=== PATIENT | female | born 1995 | race Caucasian/White ===

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

== ENCOUNTER 2017-07-30 12:49 | Emergency (ER) | payer BC, OTHER ==
[~2017-07-30] VITALS: Ht 162.6 cm; Wt 64.6 kg
[~2017-07-30 12:49] MED LIST: BCPILLS PO; CIPR-255 PO; FEXO1TAB49 PO; MULT-513 PO
[2017-07-30 12:59] VITALS: TEMP 37.2; Ht 162.6 cm; Wt 64.6 kg
[2017-07-30] MEDS ORDERED: ALBUT/IPRATROP 3MG/0.5MG NEB 3 ML VIAL INH STA (13:19)
[2017-07-30] MEDS ORDERED: METHYLPREDNISOLONE 125 MG VIAL IV STA (13:19)
[2017-07-30 13:30] VITALS: O2SAT 99
[2017-07-30] MEDS ORDERED: OPTIRAY 320 IV PRN (13:30)
[2017-07-30 13:32] LABS: BASO % 0.6 %; BASO ABS # 0.04 K/uL (0-0.2); COMPLETE YES; HEMATOCRIT 39.1 % (37-47); IG% 0.3 %; LYMPH % 47.9 %; LYMPH ABS # 3.38 K/uL (1.2-3.4); MEAN CELL VOLUME 90.3 fL (80-100); MEAN CORPUSCULAR HEMOGLOBIN 30.5 pg (25-34); MEAN CORPUSCULAR HGB CONC 33.8 g/dl (32-36); MONO % 8.6 %; NEUT % 40.6 %; PLATELET COUNT 232 K/uL (130-400); RED BLOOD COUNT 4.33 M/uL (4.2-5.4); WHITE BLOOD COUNT 7.06 K/uL (4.8-10.8)
--- NOTE | 2017-07-30 13:37 | EMERGENCY ROOM VISIT NOTE ---
History First contact with patient: 13:05 Chief Complaint: SHORTNESS OF BREATH Stated Complaint: SOB, CHEST TIGHTNESS, SENT BY [facility] Triage Summary: Pt states sent by [facility] for a CT. Pt states dx a couple weeks ago, put on prednisone and tessalon pearls. States as soon as she finished taking the prednisone sx returned. Chest tightness. Denies leg pain or recent long distance travel. History of Present Illness The patient is a 22 year old female who presents to the Emergency Room with complaints of nonproductive cough and shortness of breath has been going on for approximately 1 month. The patient was put on a course of steroids by her primary care physician. She finished in 2 weeks ago. Her symptoms have gotten progressively worse since. She also described chest tightness in the center of her chest. She denies any fever or chills. She denies any history of asthma. She has not been taking an inhaler. She recently traveled home to [place] which is approximately [address] She is on control pills. She does not smoke. Review of Systems 10 system review performed and negative unless noted in HPI or below Past Medical/Surgical History Medical Problems: (1) No pertinent past medical history (2) Urinary tract infection Family History Patient reports no known family medical history. Social History Smoking Status: Never Smoker Drug Use: none Marital Status: single Housing Status: lives with roommate Occupation Status: [employer] student Current/Historical Medications Scheduled Albuterol Hfa (Ventolin Hfa), 2 PUFFS INH QID Control Pills ( Control Pills), 1 TAB PO DAILY Fexofenadine Hcl (Emma Allergy), 1 TAB PO DAILY Multivitamins/Minerals (Mvi With Minerals), 1 TAB PO DAILY Prednisone (Prednisone), 50 MG PO DAILY Physical Exam Vital Signs Date Time Temp Pulse Resp B/P (MAP) Pulse Ox O2 Delivery O2 Flow Rate FiO2 07/30/17 14:27 117 16 110/77 99 Room Air 07/30/17 13:49 109 07/30/17 13:30 99 Room Air 07/30/17 13:00 99 Room Air 07/30/17 12:59 37.2 100 18 153/84 99 Room Air Physical Exam VITALS: Vitals are noted on the nurse's note and reviewed by myself. Vital signs stable. GENERAL: 22-year-old female, in no acute distress, nondiaphoretic, well- developed well-nourished. SKIN: The skin was without rashes, erythema, edema, or bruising. HEAD: Normocephalic atraumatic. MOUTH: Mucous membranes moist. NECK: Supple without nuchal rigidity. No lymphadenopathy. Cervical spine is nontender. No JVD. HEART: Regular rate and rhythm without murmurs gallops or rubs. LUNGS: Clear to auscultation bilaterally without wheezes, rales or rhonchi. No accessory muscle use. ABDOMEN: Positive bowel sounds x 4.Soft, nontender, without organomegaly. No guarding or rebound tenderness. MUSCULOSKELETAL: No muscle atrophy, erythema, or edema noted. Strength 5/5 throughout. NEURO: Patient was alert and oriented to person place and time. Normal sensation to touch. No focal neurological deficits. Medical Decision & Procedures ER Provider Diagnostic Interpretation: CT chest IV contrast IMPRESSION: No evidence for pulmonary embolus. The lungs are clear. The above report was generated using voice recognition software. It may contain grammatical, syntax or spelling errors. Electronically signed by: Sunil Gooden M.D. 07/30/2017 2:25 PM Dictated Date/Time: 07/30/2017 2:23 PM The status of this report is Signed. Draft = Not yet reviewed or approved by Radiologist. Signed = Reviewed and approved by Radiologist. <AttendingPhy></AttendingPhy> <FamilyPhy>No Doctor, Assigned</FamilyPhy> < PrimaryPhy>No Doctor, Assigned</PrimaryPhy> <UnitNumber>[id number]</UnitNumber> <VisitNumber>[id number]</VisitNumber> Laboratory Results 07/30/17 13:10 Red Blood Count 4.33, Mean Corpuscular Volume 90.3, Mean Corpuscular Hemoglobin 30.5, Mean Corpuscular Hemoglobin Concent 33.8, Mean Platelet Volume 9.0, Neutrophils (%) (Auto) 40.6, Lymphocytes (%) (Auto) 47.9, Monocytes (%) (Auto) 8.6, Eosinophils (%) (Auto) 2.0, Basophils (%) (Auto) 0.6, Neutrophils # (Auto) 2.87, Lymphocytes # (Auto) 3.38, Monocytes # (Auto) 0.61, Eosinophils # (Auto) 0.14, Basophils # (Auto) 0.04 07/30/17 13:10 Test 07/30/17 13:10 07/30/17 13:25 White Blood Count 7.06 K/uL (4.8-10.8) Red Blood Count 4.33 M/uL (4.2-5.4) Hemoglobin 13.2 g/dL (12.0-16.0) Hematocrit 39.1 % (37-47) Mean Corpuscular Volume 90.3 fL (80-100) Mean Corpuscular Hemoglobin 30.5 pg (25-34) Mean Corpuscular Hemoglobin Concent 33.8 g/dl (32-36) Platelet Count 232 K/uL (130-400) Mean Platelet Volume 9.0 fL (7.4-10.4) Neutrophils (%) (Auto) 40.6 % Lymphocytes (%) (Auto) 47.9 % Monocytes (%) (Auto) 8.6 % Eosinophils (%) (Auto) 2.0 % Basophils (%) (Auto) 0.6 % Neutrophils # (Auto) 2.87 K/uL (1.4-6.5) Lymphocytes # (Auto) 3.38 K/uL (1.2-3.4) Monocytes # (Auto) 0.61 K/uL (0.11-0.59) Eosinophils # (Auto) 0.14 K/uL (0-0.5) Basophils # (Auto) 0.04 K/uL (0-0.2) RDW Standard Deviation 41.0 fL (36.4-46.3) RDW Coefficient of Variation 12.4 % (11.5-14.5) Immature Granulocyte % (Auto) 0.3 % Immature Granulocyte # (Auto) 0.02 K/uL (0.00-0.02) Anion Gap 8.0 mmol/L (3-11) Est Creatinine Clear Calc Drug Dose 95.7 ml/min Estimated GFR () 121.2 Estimated GFR (Non- 104.6 BUN/Creatinine Ratio 16.5 (10-20) Calcium Level 8.6 mg/dl (8.5-10.1) Total Bilirubin 0.3 mg/dl (0.2-1) Aspartate Amino Transf (AST/SGOT) 24 U/L (15-37) Alanine Aminotransferase (ALT/SGPT) 38 U/L (12-78) Alkaline Phosphatase 39 U/L (45-117) Total Protein 7.0 gm/dl (6.4-8.2) Albumin 3.5 gm/dl (3.4-5.0) Globulin 3.5 gm/dl (2.5-4.0) Albumin/Globulin Ratio 1.0 (0.9-2) Urine Color YELLOW Urine Appearance CLEAR (CLEAR) Urine pH 5.0 (4.5-7.5) Urine Specific [place]y 1.016 (1.000-1.030) Urine Protein NEG (NEG) Urine Glucose (UA) NEG (NEG) Urine Ketones NEG (NEG) Urine Occult Blood NEG (NEG) Urine Nitrite NEG (NEG) Urine Bilirubin NEG (NEG) Urine Urobilinogen NEG (NEG) Urine Leukocyte Esterase TRACE (NEG) Urine WBC (Auto) 1-5 /hpf (0-5) Urine RBC (Auto) 0-4 /hpf (0-4) Urine Hyaline Casts (Auto) 0 /lpf (0-5) Urine Epithelial Cells (Auto) >30 /lpf (0-5) Urine Bacteria (Auto) 1+ (NEG) Urine Test NEG (NEG) Medications Administered Medications (Trade) Dose Ordered Sig/Jarek Route Start Time Stop Time Status Last Admin Dose Admin Albuterol/ Ipratropium (Duoneb) 3 ml QIDR STAT INH 07/30/17 13:19 07/30/17 13:22 DC 07/30/17 13:30 3 ML Methylprednisolone Sodium Succinate (Solu-Medrol IV) 125 mg NOW STAT IV 07/30/17 13:19 07/30/17 13:22 DC 07/30/17 13:30 125 MG ECG Indication: SOB/dyspnea Rate (beats per minute): 104 Rhythm: sinus tachycardia Comparison ECG Date: no prior available ED Course Patient was seen and examined Vital signs including blood pressure were reviewed medications list was verified with patient Labs were obtained, and a saline lock was established The patient was given a DuoNeb. She was also given Solu-Medrol 125 mg IV. Upon reevaluation, the patient was feeling better. We discussed the results of her workup. She voiced understanding. I reviewed discharge instructions the patient. They voiced understanding and had no further questions. Medical Decision Differential diagnosis: Chronic bronchitis, pulmonary embolus, pneumonia, underlying lung disease, anemia, cardiac disease This patient is a 22-year-old female that presents emergency department with a nonproductive cough and shortness of breath. On exam, she did not have any significant wheezing. There was no hypoxia. She was slightly tachycardic. Her EKG shows normal sinus rhythm with no signs of ischemia or infarction. Her troponin is negative. I have a low suspicion of cardiac cause. She said that her symptoms were better on prednisone. My thought was possibly this was a chronic bronchitis, and possibly underlying lung disease. I ordered a CT of the chest, because the patient was tachycardic and on control. I wanted to rule out pulmonary embolus. This was negative. The patient had good symptomatic relief with a nebulizer treatment and Solu-Medrol in the emergency department. Believe she is stable to be discharged home. She was given a course of prednisone in addition to an albuterol inhaler. She agrees to follow- up with her primary care physician upon returning home and weak. She also agrees to return to the emergency department with any new, worsening or concerning symptoms This chart was completed in part utilizing [facility] Speech Voice Recognition software. Attempts were made to minimize the grammatical errors, random word insertions, pronoun errors and incomplete sentences. Any formal questions or concerns about the content, text or information contained within the body of this dictation should be directly addressed to the provider for clarification. Medication Reconcilliation Current Medication List: was personally reviewed by me Blood Pressure Screening Patient's blood pressure: Normal blood pressure Impression Primary Impression: Shortness of breath Departure Information Dispostion Home / Self-Care Condition GOOD Prescriptions Albuterol Hfa (VENTOLIN HFA) 200 Puffs/93306 Mcg Aers 2 PUFFS INH QID for SOB/Wheezing, #1 INHALER Prov: Yamel David PA-C 07/30/17 Prednisone (Prednisone) 50 Mg Tab 50 MG PO DAILY for 4 Days, #4 TAB Prov: Yamel David PA-C 07/30/17 Referrals No Doctor, Assigned (PCP) Patient Instructions [facility] Additional Instructions You were evaluated in the emergency department for difficulty breathing. This is possibly due to bronchitis. Please take entire course of steroids. Please use the inhaler 1-2 puffs every 4 hours as needed for difficulty breathing. Please follow-up with her primary care physician next week Please do not hesitate to return to the emergency department with any new, worsening or concerning symptoms; especially, worsening breathing, fever or pain in your chest
[2017-07-30 13:42] LABS: BUN/CREATININE RATIO 16.5 (10-20); CALCIUM 8.6 mg/dl (8.5-10.1); CREATININE 0.81 mg/dl (0.60-1.20); POTASSIUM 3.5 mmol/L (3.5-5.1)
[2017-07-30 14:15] LABS: URINE APPEARANCE CLEAR (CLEAR); URINE BILIRUBIN NEG (NEG); URINE COLOR YELLOW; URINE EPITHELIAL CELL AUTO >30 /lpf (0-5); URINE NITRITE NEG (NEG); URINE SPECIFIC GRAVITY 1.016 (1.000-1.030); UROBILINOGEN NEG (NEG)
[2017-07-30 14:19] LABS: MANUAL MICROSCOPIC REQUIRED? NO; REVIEW REQ? NO
--- NOTE | 2017-07-30 14:26 | DIAGNOSTIC IMAGING REPORT ---
(CHEST FOR PE) ANGIO WITH CT DOSE: 276.79 mGycm HISTORY: Chest pain dyspnea TECHNIQUE: Multiaxial CT images of the chest were performed following the intravenous administration of contrast to evaluate the pulmonary arteries. Maximal intensity projection images were also obtained. A dose lowering technique was utilized adhering to the principles of ALARA. COMPARISON STUDY: None. FINDINGS: There is a normal caliber thoracic aorta with no evidence for dissection. There is no evidence for pulmonary embolus. No pleural effusions. No pneumothorax. The liver and spleen are unremarkable. No mediastinal or hilar lymphadenopathy. The central airways are patent. The lungs are clear. IMPRESSION: No evidence for pulmonary embolus. The lungs are clear. The above report was generated using voice recognition software. It may contain grammatical, syntax or spelling errors. Electronically signed by: Sunil Gooden M.D. 07/30/2017 2:25 PM Dictated Date/Time: 07/30/2017 2:23 PM
[2017-07-30 14:27] VITALS: BP 110/77; PULSE 117; O2SAT 99
[2017-07-30] MEDS ORDERED: PRED50TA PO (15:11)
[2017-07-30] MEDS ORDERED: VNTHFA/IN INH (15:11)
== END 2017-07-30 15:15 | disposition home or self-care (01) ==
LOC: C.EDB 12:50 → C.EDA 15:15
DX: R06.02 Shortness of breath (principal); Z87.440 Personal history of urinary (tract) infections

== ENCOUNTER 2017-10-09 08:20 | Emergency (ER) | payer BC ==
[~2017-10-09] VITALS: Ht 162.6 cm; Wt 64.1 kg
[~2017-10-09 08:20] MED LIST changes: -CIPR-255 PO; +VNTHFA/IN INH
[2017-10-09 08:25] VITALS: TEMP 37.2; Ht 162.6 cm; Wt 64.1 kg
--- NOTE | 2017-10-09 08:28 | EMERGENCY ROOM VISIT NOTE ---
History Chief Complaint: FLU LIKE SX Stated Complaint: CONGESTED,HEADACHE,COUGH, FEVER History of Present Illness The patient is a 22 year old female who presents to the Emergency Room with complaints of Past Medical/Surgical History Medical Problems: (1) No pertinent past medical history (2) Urinary tract infection Family History Patient reports no known family medical history. Social History Smoking Status: Never Smoker Drug Use: none Marital Status: single Housing Status: lives with roommate Occupation Status: [employer] student Current/Historical Medications Scheduled Albuterol Hfa (Ventolin Hfa), 2 PUFFS INH QID Control Pills ( Control Pills), 1 TAB PO DAILY Physical Exam Vital Signs Date Time Temp Pulse Resp B/P (MAP) Pulse Ox O2 Delivery O2 Flow Rate FiO2 10/09/17 10:06 112 18 117/69 99 10/09/17 08:25 37.2 112 18 118/82 99 Room Air Medical Decision & Procedures Laboratory Results Test 10/09/17 08:33 Influenza Type A Antigen POS for Influ A (NEG) Influenza Type B Antigen Neg for Influ B (NEG) Departure Information Referrals No Doctor, Assigned (PCP) Patient Instructions My [facility] Resident Tracking Resident Involvement: Resident Care Provided Care Provided: Adult ED
[2017-10-09 09:07] LABS: INFLUENZA B ANTIGEN Neg for Influ B (NEG)
--- NOTE | 2017-10-09 09:30 | DIAGNOSTIC IMAGING REPORT ---
CHEST 2 VIEWS ROUTINE HISTORY: cough x 1 week COMPARISON: Chest CTA 07/30/2017. FINDINGS: The lungs are clear. Cardiac silhouette is normal in size. No pleural effusions. No pneumothorax. IMPRESSION: No acute process. Electronically signed by: Jimmy Zambrano M.D. 10/09/2017 9:28 AM Dictated Date/Time: 10/09/2017 9:26 AM
--- NOTE | 2017-10-09 09:51 | EMERGENCY ROOM VISIT NOTE ---
History First contact with patient: 08:30 Chief Complaint: FLU LIKE SX Stated Complaint: CONGESTED,HEADACHE,COUGH, FEVER History of Present Illness The patient is a 22 year old white female who presents to the Emergency Room with complaints of head congestion, rhinorrhea ,cough, and fever that she has had for a week. She states the cough seems to be getting worse. The head congestion is staying the same. She had a fever last night of 100. She does have known ill contacts. No ear pain, sore throat, or diarrhea. She states she has had some nausea and a few episodes of vomiting over the last 2 days. No abdominal pain. No treatment yet. Review of Systems REVIEW OF SYSTEM: HEENT: No dizziness, visual problems, hearing loss, or tinnitus. There is no difficulty swallowing and no oral lesions are present. PULMONARY: No shortness of breath, or hemoptysis. CARDIOVASCULAR: No chest pain, palpitations, shortness of breath or peripheral edema. GASTROINTESTINAL: No diarrhea, constipation, or abdominal pain. GENITOURINARY: No dysuria, frequency, urgency or nocturia. NEUROLOGIC: No weakness, muscle tenderness, epilepsy or history of neurological problems. MUSCULOSKELETAL: No history of joint tenderness/swelling. No history of arthritis or arthralgias. SKIN: No rashes or lesions. PSYCHIATRIC: No history of depression or mental illness. ENDOCRINE: No history of diabetes, thyroid disorders, or abnormal hair growth. Past Medical/Surgical History Medical Problems: (1) No pertinent past medical history (2) Urinary tract infection Family History Patient reports no known family medical history. Social History Smoking Status: Never Smoker Smokeless Tobacco Use: No Alcohol Use: occasionally Drug Use: none Marital Status: single Housing Status: lives with roommate Occupation Status: [employer] student Current/Historical Medications Scheduled Albuterol Hfa (Ventolin Hfa), 2 PUFFS INH QID Control Pills ( Control Pills), 1 TAB PO DAILY Physical Exam Vital Signs Date Time Temp Pulse Resp B/P (MAP) Pulse Ox O2 Delivery O2 Flow Rate FiO2 10/09/17 08:25 37.2 112 18 118/82 99 Room Air Physical Exam Gen.: Well-developed, well-nourished, young white female, in no acute distress. Sitting on a bed. Alert and oriented. Mask in place. Skin: Warm and dry with good turgor. No rashes or lesions. No ecchymosis or erythema. The patient is not diaphoretic. No abrasions. HEENT: Normocephalic atraumatic. Eyes PERRLA, EOMI. No conjunctiva or scleral injection. Ears TMs intact bilaterally with good light reflexes. No erythema or bulging. No hemotympanum. Canals are patent. Nares patent bilaterally without turbinate enlargement. Thick yellow drainage in the left nares. No epistaxis. Oropharynx without erythema or exudate. Uvula midline, oral mucosa moist. No lesions present. Lymphatics are palpated with single right anterior node enlargement. No posterior chain enlargement or tenderness. Heart: Heart tachycardic with regular rhythm. No MGR. Peripheral pulses are 2+ . Lungs: Lungs are clear to auscultation. No crackles rhonchi or wheezing. Good air movement. Frequent deep dry cough. The patient is able to take a deep breath. Abdomen: Abdomen was inspected, auscultated, and palpated. Bowel sounds present x 4. Soft, nontender to palpation. No hepato-splenomegaly. No masses noted. No rebound. Musculoskeletal: Gross motor function of the upper and lower extremities is intact and unremarkable. Medical Decision & Procedures ER Provider Diagnostic Interpretation: Chest x-ray obtained today was read by radiology and reviewed by me. It is unremarkable. Laboratory Results Test 10/09/17 08:33 Influenza Type A Antigen POS for Influ A (NEG) Influenza Type B Antigen Neg for Influ B (NEG) Influenza swab was positive for influenza A ED Course Patient was educated regarding today's findings. Conservative care measures were discussed. Nasal swab was obtained. Chest x-ray was obtained. She is tachycardic and likely mildly dehydrated. Patient was encouraged to increase her fluid intake and maintain hydration. Tylenol and Motrin every 6 hours as needed for body aches and fever control. She should avoid public contact until symptoms have fully resolved. I did offer her Tamiflu even though she is outside the typical timeframe for starting it. She declined. Note was provided to be out of class until symptoms resolve. Return to the ED or follow- up with [facility] services if symptoms should become worse. She may use Delsym every 12 hours as needed for cough control. Medical Decision Possibility of influenza, common cold, bronchitis, pneumonia, strep pharyngitis , ear infection, and sinusitis were considered among others [place] Drug Monitoring Program Search Results: no issues identified Medication Reconcilliation Current Medication List: was personally reviewed by me Blood Pressure Screening Patient's blood pressure: Normal blood pressure Impression Primary Impression: Influenza A Departure Information Referrals No Doctor, Assigned (PCP) Patient Instructions My [facility]
[2017-10-09 10:06] VITALS: BP 117/69; PULSE 112; O2SAT 99
== END 2017-10-09 10:04 | disposition home or self-care (01) ==
LOC: C.EDB 08:22
DX: J10.1 Influenza due to other identified influenza virus with other respiratory manifestations (principal); E86.0 Dehydration; Z87.440 Personal history of urinary (tract) infections; Z79.3 Long term (current) use of hormonal contraceptives